=== PATIENT | female | born 1930 | race Caucasian/White ===

== ENCOUNTER 2017-12-30 09:51 | Inpatient (IN) ==
[2017-12-30 11:06] LABS: Basophils # 0.1 10*3/uL (0.0-0.2); Basophils % 0.8 % (0.0-0.8); Eosinophils # 0.2 10*3/uL (0.0-0.87); Eosinophils % 2.6 % (0.00-10.9); Hemoglobin 9.9 GM/DL (12.0-16.0); Immature Granulocytes % 0.3 %; Immature Granulocytes Absolute 0.03 #; Lymphocytes # 1.9 10*3/uL (1.4-4.0); Lymphocytes % 20.4 % (21.3-54.2); Mean Corpuscular HGB Conc 31.9 GM/DL (32-36); Mean Corpuscular Hemoglobin 28 PG (27-34); Mean Corpuscular Volume 86.1 FL (87-102); Mean Platelet Volume 9.4 FL (9.6-12.0); Monocytes # 0.7 10*3/uL (0.11-0.8); Monocytes % 7.9 % (1.7-12.7); Neutrophils # 6.4 10*3/uL (1.4-7.4); Platelet Count 284 T/CUMM (130-400); Red Cell Distribution Width 14.6 % (9.3-17.3); White Blood Count 9.3 T/CUMM (4-12)
[2017-12-30 11:44] LABS: Alanine Aminotransferase 19 U/L (13-56); Albumin 3.8 G/DL (3.4-5.0); Alkaline Phosphatase 102 U/L (45-117); Aspartate Amino Transferase 13 U/L (0-37); Blood Urea Nitrogen 24 MG/DL (7-18); Calcium 8.9 MG/DL (8.5-10.1); Glucose 100 MG/DL (74-106); Osmolality,Calculated 269.4 MOS/KG (273-304); Potassium 3.7 MMOL/L (3.5-5.1); Sodium 133 MMOL/L (136-145); Total Protein 6.9 G/DL (6.4-8.3); Troponin I Only < 0.015 NG/ML (0.00-0.045)
[2017-12-30] MEDS ORDERED: ACETAMINOPHEN 325 MG TABLET PO PRN (15:14)
[2017-12-30] MEDS ORDERED: NITROGLYCERIN SL 0.4 MG TABLET SL PRN (15:25)
[2017-12-30] MEDS ORDERED: ALUM/MAG/SIMETH/LIDO VISC 1:1 30 ML BOTTLE PO PRN (15:44)
[2017-12-30] MEDS: SODIUM CHLORIDE 0.9% 1,000 ML IV SCH (17:58)
[2017-12-30] MEDS ORDERED: ALPRAZolam 0.25 MG TABLET PO PRN (20:23)
[2017-12-30] MEDS ORDERED: GABAPENTIN 300 MG CAPSULE PO SCH (21:00)
[2017-12-30] MEDS: GABAPENTIN 400 MG CAPSULE PO SCH (21:08)
[2017-12-30] MEDS: PANTOPRAZOLE 40 MG TABLET PO SCH (21:08)
[2017-12-30] MEDS: CARVEDILOL 3.125 MG TABLET PO SCH (21:08)
[2017-12-30] MEDS: ISOSORBIDE MONONITRATE 20 MG TABLET PO SCH (22:02)
[2017-12-31 00:46] LABS: Troponin I Only < 0.015 NG/ML (0.00-0.045)
[2017-12-31] MEDS: ZALEPLON 5 MG CAPSULE PO PRN ×2 (01:33→21:17)
[2017-12-31 05:11] LABS: Basophils # 0.1 10*3/uL (0.0-0.2); Basophils % 0.8 % (0.0-0.8); Eosinophils # 0.2 10*3/uL (0.0-0.87); Eosinophils % 3.7 % (0.00-10.9); Hematocrit 26.8 VOL% (35.7-47.0); Hemoglobin 8.7 GM/DL (12.0-16.0); Immature Granulocytes % 0.6 %; Immature Granulocytes Absolute 0.04 #; Lymphocytes % 30.4 % (21.3-54.2); Mean Corpuscular HGB Conc 32.5 GM/DL (32-36); Mean Corpuscular Hemoglobin 28 PG (27-34); Mean Corpuscular Volume 85.1 FL (87-102); Monocytes % 15.5 % (1.7-12.7); Neutrophils # 3.2 10*3/uL (1.4-7.4); Platelet Count 256 T/CUMM (130-400); Red Blood Count 3.15 MC/CUMM (3.8-5.5); Red Cell Distribution Width 14.6 % (9.3-17.3); White Blood Count 6.5 T/CUMM (4-12)
[2017-12-31] MEDS: LEVOTHYROXINE 100 MCG TABLET PO SCH (06:07)
[2017-12-31 06:17] LABS: Calcium 8.7 MG/DL (8.5-10.1); Potassium 3.4 MMOL/L (3.5-5.1)
[2017-12-31] MEDS: CHOLECALCIFEROL 5,000 UNIT TABLET PO SCH (08:15)
[2017-12-31] MEDS: ROSUVASTATIN 10 MG TABLET PO SCH (08:15)
[2017-12-31] MEDS: CARVEDILOL 3.125 MG TABLET PO SCH ×2 (08:15→21:17)
[2017-12-31] MEDS: CYANOCOBALAMIN 500 MCG TABLET PO SCH (08:15)
[2017-12-31] MEDS: ISOSORBIDE MONONITRATE 20 MG TABLET PO SCH ×2 (08:16→21:17)
[2017-12-31] MEDS: PANTOPRAZOLE 40 MG TABLET PO SCH ×2 (08:16→21:17)
[2017-12-31] MEDS: DOXEPIN 25 MG CAPSULE PO SCH (08:16)
[2017-12-31] MEDS: GABAPENTIN 400 MG CAPSULE PO SCH ×2 (08:16→21:17)
[2017-12-31] MEDS: POTASSIUM CHLORIDE 20 MEQ TABLET PO SCH (08:16)
[2017-12-31] MEDS: FUROSEMIDE 80 MG TABLET PO SCH (08:20)
[2017-12-31] MEDS ORDERED: ALPRAZolam 0.5 MG TABLET PO SCH (09:00)
[2017-12-31] MEDS ORDERED: amLODIPine 5 MG TABLET PO SCH (09:00)
[2017-12-31] MEDS ORDERED: ASPIRIN 325 MG TABLET PO SCH (09:00)
[2017-12-31] MEDS ORDERED: MELOXICAM 7.5 MG TABLET PO SCH (09:00)
[2017-12-31] MEDS ORDERED: FUROSEMIDE 20 MG/2 ML VIAL IV PRN (10:34)
[2017-12-31] MEDS ORDERED: SODIUM CHLORIDE 0.9% 1,000 ML IV PRN (10:34)
[2017-12-31] MEDS: MAGNESIUM HYDROXIDE SUSP 30 ML UDCUP PO SCH ×3 (12:28→21:17)
[2017-12-31] MEDS: SODIUM CHLORIDE 0.9% 1,000 ML IV SCH (13:16)
[2017-12-31 13:48] LABS: Apearance,Urine CLEAR (Clear); Bilirubin,Urine Negative (Negative); Blood, Urine Negative (Negative); Glucose,Urine (UA) Negative (Negative); Ketones,Urine Negative (Negative); Nitrite,Urine Negative (Negative); Protein,Urine Negative; Squamous Epithelial Cell,Urine Occasional /HPF (0-10); Urine Color Colorless (Yellow); Urine Specific Gravity 1.003 (1.001-1.035); Urine Urobilinogen < 2.0 EU/DL (0.2-1.0)
[2017-12-31 20:22] LABS: Hematocrit 29.6 VOL% (35.7-47.0); Hemoglobin 9.7 GM/DL (12.0-16.0)
[2017-12-31] MEDS ORDERED: ALPRAZolam 0.25 MG TABLET PO SCH (21:00)
[2017-12-31] MEDS ORDERED: traZODone 50 MG TABLET PO SCH (21:00)
[2017-12-31] MEDS: ALPRAZolam 0.25 MG TABLET PO PRN (21:17)
[2018-01-01 04:02] LABS: Basophils # 0.1 10*3/uL (0.0-0.2); Basophils % 0.6 % (0.0-0.8); Eosinophils # 0.3 10*3/uL (0.0-0.87); Eosinophils % 3.1 % (0.00-10.9); Hematocrit 27.3 VOL% (35.7-47.0); Hemoglobin 8.6 GM/DL (12.0-16.0); Immature Granulocytes % 0.3 %; Immature Granulocytes Absolute 0.03 #; Lymphocytes # 2.1 10*3/uL (1.4-4.0); Lymphocytes % 23.6 % (21.3-54.2); Mean Corpuscular HGB Conc 31.5 GM/DL (32-36); Mean Corpuscular Hemoglobin 27 PG (27-34); Mean Corpuscular Volume 86.7 FL (87-102); Mean Platelet Volume 9.5 FL (9.6-12.0); Monocytes # 1.2 10*3/uL (0.11-0.8); Monocytes % 13.6 % (1.7-12.7); Neutrophils # 5.3 10*3/uL (1.4-7.4); Neutrophils % 58.8 % (38.7-73.9); Platelet Count 264 T/CUMM (130-400); Red Blood Count 3.15 MC/CUMM (3.8-5.5); Red Cell Distribution Width 14.6 % (9.3-17.3)
[2018-01-01 04:29] LABS: Calcium 8.6 MG/DL (8.5-10.1); Osmolality,Calculated 279.5 MOS/KG (273-304); Potassium 3.4 MMOL/L (3.5-5.1)
[2018-01-01] MEDS: LEVOTHYROXINE 100 MCG TABLET PO SCH (06:10)
[2018-01-01] MEDS: SODIUM CHLORIDE 0.9% 1,000 ML IV SCH (08:18)
[2018-01-01] MEDS: MAGNESIUM HYDROXIDE SUSP 30 ML UDCUP PO SCH ×4 (09:54→21:22)
[2018-01-01] MEDS: CYANOCOBALAMIN 500 MCG TABLET PO SCH (09:54)
[2018-01-01] MEDS: ISOSORBIDE MONONITRATE 20 MG TABLET PO SCH ×2 (09:54→21:21)
[2018-01-01] MEDS: CARVEDILOL 3.125 MG TABLET PO SCH ×2 (09:55→21:21)
[2018-01-01] MEDS: GABAPENTIN 400 MG CAPSULE PO SCH ×2 (09:55→21:21)
[2018-01-01] MEDS: FUROSEMIDE 80 MG TABLET PO SCH (09:55)
[2018-01-01] MEDS: DOXEPIN 25 MG CAPSULE PO SCH (09:55)
[2018-01-01] MEDS: ASPIRIN EC 81 MG TABLET PO SCH (09:55)
[2018-01-01] MEDS: CHOLECALCIFEROL 5,000 UNIT TABLET PO SCH (09:55)
[2018-01-01] MEDS: POTASSIUM CHLORIDE 20 MEQ TABLET PO SCH (09:55)
[2018-01-01] MEDS: ROSUVASTATIN 10 MG TABLET PO SCH (09:56)
[2018-01-01] MEDS: PANTOPRAZOLE 40 MG TABLET PO SCH ×2 (09:56→21:21)
[2018-01-01] MEDS ORDERED: POTASSIUM CHLORIDE 20 MEQ TABLET PO ONE (10:02)
[2018-01-01] MEDS: ZALEPLON 5 MG CAPSULE PO PRN (21:21)
[2018-01-01] MEDS: ALPRAZolam 0.25 MG TABLET PO PRN (21:21)
[2018-01-02] MEDS: SODIUM CHLORIDE 0.9% 1,000 ML IV SCH ×2 (04:05→13:56)
[2018-01-02 05:23] LABS: Hematocrit 33.2 VOL% (35.7-47.0)
[2018-01-02 05:54] LABS: Calcium 8.7 MG/DL (8.5-10.1); Osmolality,Calculated 283.3 MOS/KG (273-304); Potassium 3.6 MMOL/L (3.5-5.1)
[2018-01-02] MEDS: LEVOTHYROXINE 100 MCG TABLET PO SCH ×2 (06:20→06:29)
[2018-01-02] MEDS: ROSUVASTATIN 10 MG TABLET PO SCH (08:55)
[2018-01-02] MEDS: ISOSORBIDE MONONITRATE 20 MG TABLET PO SCH ×2 (08:56→21:51)
[2018-01-02] MEDS: CHOLECALCIFEROL 5,000 UNIT TABLET PO SCH (08:56)
[2018-01-02] MEDS: CARVEDILOL 3.125 MG TABLET PO SCH ×2 (08:56→21:51)
[2018-01-02] MEDS: CYANOCOBALAMIN 500 MCG TABLET PO SCH (08:56)
[2018-01-02] MEDS: DOXEPIN 25 MG CAPSULE PO SCH (08:56)
[2018-01-02] MEDS: PANTOPRAZOLE 40 MG TABLET PO SCH ×2 (08:56→21:51)
[2018-01-02] MEDS: FUROSEMIDE 80 MG TABLET PO SCH (08:56)
[2018-01-02] MEDS: MAGNESIUM HYDROXIDE SUSP 30 ML UDCUP PO SCH ×4 (08:57→21:51)
[2018-01-02] MEDS: POTASSIUM CHLORIDE 20 MEQ TABLET PO SCH (08:57)
[2018-01-02] MEDS: ASPIRIN EC 81 MG TABLET PO SCH (08:57)
[2018-01-02] MEDS: GABAPENTIN 400 MG CAPSULE PO SCH ×2 (08:57→21:51)
[2018-01-02] MEDS ORDERED: HYDROCORTISONE 0.5% CREAM 28.35 GM TUBE TOP PRN (18:25)
[2018-01-02] MEDS: ZALEPLON 5 MG CAPSULE PO PRN (21:51)
[2018-01-02] MEDS: ALPRAZolam 0.25 MG TABLET PO PRN (21:51)
[2018-01-03] MEDS: SODIUM CHLORIDE 0.9% 1,000 ML IV SCH (00:24)
[2018-01-03 05:44] LABS: Calcium 8.9 MG/DL (8.5-10.1); Osmolality,Calculated 281.3 MOS/KG (273-304); Potassium 3.4 MMOL/L (3.5-5.1)
[2018-01-03 06:12] LABS: Basophils # 0.1 10*3/uL (0.0-0.2); Basophils % 0.7 % (0.0-0.8); Eosinophils # 0.4 10*3/uL (0.0-0.87); Eosinophils % 4.5 % (0.00-10.9); Hematocrit 33.7 VOL% (35.7-47.0); Immature Granulocytes % 0.5 %; Immature Granulocytes Absolute 0.04 #; Lymphocytes # 1.9 10*3/uL (1.4-4.0); Lymphocytes % 23.1 % (21.3-54.2); Mean Corpuscular HGB Conc 32.6 GM/DL (32-36); Mean Corpuscular Hemoglobin 28 PG (27-34); Mean Corpuscular Volume 86.6 FL (87-102); Mean Platelet Volume 10.6 FL (9.6-12.0); Monocytes # 1.1 10*3/uL (0.11-0.8); Monocytes % 13.2 % (1.7-12.7); Neutrophils # 4.6 10*3/uL (1.4-7.4); Platelet Count 218 T/CUMM (130-400); Red Blood Count 3.89 MC/CUMM (3.8-5.5); Red Cell Distribution Width 14.7 % (9.3-17.3)
[2018-01-03] MEDS: LEVOTHYROXINE 100 MCG TABLET PO SCH ×2 (06:21→13:27)
[2018-01-03 12:09] VITALS: BP 165/77
[2018-01-03] MEDS: CYANOCOBALAMIN 500 MCG TABLET PO SCH (13:19)
[2018-01-03] MEDS: PANTOPRAZOLE 40 MG TABLET PO SCH (13:20)
[2018-01-03] MEDS: GABAPENTIN 400 MG CAPSULE PO SCH (13:20)
[2018-01-03] MEDS: ASPIRIN EC 81 MG TABLET PO SCH (13:20)
[2018-01-03] MEDS: POTASSIUM CHLORIDE 20 MEQ TABLET PO SCH (13:20)
[2018-01-03] MEDS: ROSUVASTATIN 10 MG TABLET PO SCH (13:21)
[2018-01-03] MEDS: CHOLECALCIFEROL 5,000 UNIT TABLET PO SCH (13:21)
[2018-01-03] MEDS: DOXEPIN 25 MG CAPSULE PO SCH (13:21)
[2018-01-03] MEDS: FUROSEMIDE 80 MG TABLET PO SCH (13:21)
[2018-01-03] MEDS: CARVEDILOL 3.125 MG TABLET PO SCH (13:22)
[2018-01-03] MEDS: MAGNESIUM HYDROXIDE SUSP 30 ML UDCUP PO SCH ×3 (13:22→13:27)
[2018-01-03] MEDS: ISOSORBIDE MONONITRATE 20 MG TABLET PO SCH (13:31)
[2018-01-03] MEDS ORDERED: PROPOFOL 200 MG/20 ML VIAL IV ONE (15:04)
[2018-01-03] MEDS ORDERED: LIDOCAINE 1% 5 ML VIAL ONE (15:04)
[2018-01-04] MEDS ORDERED: ISOSORBIDE MONONITRATE 60 MG TABLET PO SCH (09:00)
== END 2018-01-03 15:15 | disposition home or self-care (01) | DRG 880 ==
LOC: N.EDINP 09:51 → N.ED 09:51 → SUATTDRO 14:30 → N.TELEN 17:35
PROVIDERS: ADMIT Internal Medicine; ATTEND Internal Medicine